=== PATIENT | female | born 1975 | race Caucasian/White ===

== ENCOUNTER → 2016-10-02 | Outpatient (CLI) | payer OTHER | LOC: FIMAGING 14:13 | DX: Z12.31 Encounter for screening mammogram for malignant neoplasm of breast (principal) | CPT/HCPCS: G0202 ==

== ENCOUNTER → 2017-10-03 | Outpatient (CLI) | payer OTHER | LOC: FIMAGING 12:31 | PROVIDERS: ATTEND Nurse Practitioner Adult Health | DX: Z12.31 Encounter for screening mammogram for malignant neoplasm of breast (principal) ==

== ENCOUNTER → 2017-10-17 | Outpatient (CLI) | payer OTHER | LOC: FIMAGING 10:02 | PROVIDERS: ATTEND Nurse Practitioner Adult Health | DX: N60.01 Solitary cyst of right breast (principal) ==

== ENCOUNTER → 2018-10-10 | Outpatient (CLI) | payer OTHER | LOC: FIMAGING 11:45 | PROVIDERS: ATTEND Nurse Practitioner Adult Health | DX: Z12.31 Encounter for screening mammogram for malignant neoplasm of breast (principal) ==

== ENCOUNTER → 2018-10-25 | Outpatient (CLI) | payer OTHER | LOC: FIMAGING 10:49 ==